=== PATIENT | male | born 1940 | race Caucasian/White ===

== ENCOUNTER 2017-03-19 08:14 | Inpatient (IN) ==
--- NOTE | 2017-03-18 21:02 | Discharge Summary ---
<Aliya Barba - Last Filed: 03/18/17 20:59> Date of Encounter: 03/18/17 - Discharge Diagnosis (1) Arthritis of knee, right Priority: Primary Status: Acute (2) Atrial fibrillation Priority: Secondary Status: Chronic Qualifiers: Atrial fibrillation type: unspecified Qualified Code(s): I48.91 - Unspecified atrial fibrillation (3) Pacemaker Priority: Secondary Status: Chronic (4) HTN (hypertension) Priority: Secondary Status: Chronic Qualifiers: Hypertension type: essential hypertension Qualified Code(s): I10 - Essential (primary) hypertension (5) HLD (hyperlipidemia) Priority: Secondary Status: Chronic Qualifiers: Hyperlipidemia type: unspecified Qualified Code(s): E78.5 - Hyperlipidemia , unspecified (6) CHF (congestive heart failure) Priority: Secondary Status: Chronic Qualifiers: Congestive heart failure type: unspecified congestive heart failure type Congestive heart failure chronicity: unspecified congestive heart failure chronicity Qualified Code(s): I50.9 - Heart failure, unspecified - Discharge Medications Home Medications: OxyCODONE Immed Rel [Roxicodone 5 MG] 5 - 10 mg PO Q6HR PRN #40 tablet 03/18/17 [Rx] Amiodarone HCl [Pacerone] 400 mg PO DAILY 03/19/17 [History] Digoxin [Lanoxin] 0.125 mg PO DAILY 03/19/17 [History] Furosemide [Lasix] 20 mg PO DAILY 03/19/17 [History] Metoprolol XL (24 HR) Succ [Toprol Xl] 25 mg PO DAILY 03/19/17 [History] Rivaroxaban [Xarelto] 20 mg PO 1800 03/19/17 [History] Sacubitril/Valsartan [Entresto 24 mg-26 mg Tablet] 1 each PO DAILY 03/19/17 [ History] Allergies/Adverse Reactions: Allergies aspirin Adverse Reaction (Verified 03/19/17 14:57) NAUSEA,VOMITING Primary care physician: Debbi Davis, - Patient Status Disposition: Transfer Inpatient Rehab Fac Condition: Good - Discharge Instructions Follow Up With: Debbi Davis MD [Primary Care Provider] - - Hospital Course Hospital course: Mr. Min is a 76 year old male - Time Spent with Patient Total time spent providing and/or coordinating discharge services: <Sherman Boston - Last Filed: 03/22/17 08:14> Date of Encounter: 03/22/17 Time of Encounter: 08:12 - Discharge Diagnosis (1) Arthritis of knee, right Priority: Primary Status: Acute (2) Atrial fibrillation Priority: Secondary Status: Chronic Qualifiers: Atrial fibrillation type: paroxysmal Qualified Code(s): I48.0 - Paroxysmal atrial fibrillation (3) Pacemaker Priority: Secondary Status: Chronic (4) HTN (hypertension) Priority: Secondary Status: Chronic Qualifiers: Hypertension type: essential hypertension Qualified Code(s): I10 - Essential (primary) hypertension (5) HLD (hyperlipidemia) Priority: Secondary Status: Chronic Qualifiers: Hyperlipidemia type: unspecified Qualified Code(s): E78.5 - Hyperlipidemia , unspecified (6) CHF (congestive heart failure) Priority: Secondary Status: Chronic Qualifiers: Congestive heart failure type: unspecified congestive heart failure type Congestive heart failure chronicity: chronic Qualified Code(s): I50.9 - Heart failure, unspecified (7) Hypoxia Priority: Primary Status: Acute (8) Urinary retention Priority: Primary Status: Acute Primary care physician: Debbi Davis, - Patient Status Functional capacity at discharge: uses cane/walker Overall status at discharge: patient is progressing back to baseline - Hospital Course Hospital course: Mr. Min is a 76 year old male The patient had an uneventful postoperative course. They received antibiotics and physical therapy and were discharged in stable condition. There will follow -up in the office in 2 weeks. Patient with postoperative hypoxia and urinary retention. Patient seen and evaluated by medical team patient discharged in significantly improved condition with no complaints of breathing issues. - Time Spent with Patient Total time spent providing and/or coordinating discharge services:
--- NOTE | 2017-03-18 21:07 | Physician Discharge Referral ---
ExtendedCare Referral Info Transfer To: [facility] Institutional Level of Care: Skilled - Diagnosis (1) Arthritis of knee, right Status: Acute (2) Atrial fibrillation Priority: Secondary Status: Chronic (3) Pacemaker Priority: Secondary Status: Chronic (4) HTN (hypertension) Priority: Secondary Status: Chronic (5) HLD (hyperlipidemia) Priority: Secondary Status: Chronic (6) CHF (congestive heart failure) Priority: Secondary Status: Chronic Prognosis: Good Aware of Diagnosis: Patient Aware of Prognosis: Patient - Transfer Medications Prescriptions: OxyCODONE Immed Rel [Roxicodone 5 MG] 5 - 10 mg PO Q6HR PRN #40 tablet PRN Reason: Pain Home Medications: OxyCODONE Immed Rel [Roxicodone 5 MG] 5 - 10 mg PO Q6HR PRN #40 tablet 03/18/17 [Rx] Allergies/Adverse Reactions: Allergies aspirin Adverse Reaction (Unverified 02/27/17 13:35) See Comments - Respiratory Orders Smoking Cessation: Smoking cessation has been advised. For more information, call the [place] Tobacco Quit Line at 0-544-HKEJ-NOW. - Ancillary Orders May use pressure relief devices daily prn, May go on JARON w/family/respon democrat w /meds at nurse discretion PRN, May consult with Dentist, Network Control Operators Supervisor, Commercial Lines Account Assistant PRN - Mobility Orders Ambulate - Rehabiliation Orders Rehab Potential: Good Rehab Orders: ROM Exercises, Evaluation for Physical Therapy, Evaluation for Occupational Therapy Other: Opsite dressing in place. Keep intact until follow up appointment, only remove if >50% saturated and replace with appropriate dressing. Do not get dressing wet - Diet Orders Regular, Cardiac CERTIFICATION: I certify that the transfer of the above named patient to an Extended Care Facility is necessary for the continuing treatment of the diagnosis listed. The above information is true and accurate reflection of patient's current condition. Confidential - Redisclosure prohibited without a patient's written consent.
[2017-03-19] MEDS ORDERED: Lidocaine -MPF 1% 2 ML VIAL ID ONE (08:33)
[2017-03-19] MEDS ORDERED: CeFAZolin Pre 2,000 MG/100 ML 2,000 MG/100 ML BAG IVPB ONE (08:33)
[2017-03-19] MEDS ORDERED: Lidocaine -MPF 2% 2 ML VIAL ONE (08:42)
[2017-03-19] MEDS ORDERED: *HR* FentaNYL (PF) 100 MCG/2 ML VIAL ONE ×2 (08:42→11:02)
[2017-03-19] MEDS ORDERED: *HR* Propofol 200 MG/20 ML VIAL IVP ONE (08:43)
[2017-03-19] MEDS ORDERED: Ringers Solution, Lactated 1,000 ML IVC SCH (08:45)
[2017-03-19] MEDS ORDERED: CeFAZolin Pre 2,000 MG/100 ML 2,000 MG/100 ML BAG ONE (08:53)
--- NOTE | 2017-03-19 09:02 | History & Physical Report ---
Date of Encounter: 03/19/17 Time of Encounter: 09:01 24 Hour HP Update - Instructions Instructions: If the History and Physical is less than 30 days old and was completed prior to A.M. admission and or procedure and has NOT been updated on calendar day of procedure please complete this update prior to performing procedure. - Update Patient reports changes in Medical Condition: No Changes in examination, assessment, or condition: No Changes in Medication: No Preop tests/diagnostics Reviewed: Yes Surgery Remains Indicated: Yes Consent for Planned Operative Procedure(s) Verified: Yes - Pre-Operative Checklist Preoperative Checklist Indicated: No Prophylactic Antibiotic Ordered: Yes Is VTE Prophylaxis Indicated?: Yes
[2017-03-19] MEDS ORDERED: Famotidine 20 MG/2 ML VIAL IVP ONE (09:03)
[2017-03-19] MEDS ORDERED: Gabapentin 300 MG CAPSULE PO ONE (09:03)
[2017-03-19] MEDS ORDERED: Famotidine 20 MG/2 ML VIAL ONE (09:43)
[2017-03-19] MEDS ORDERED: Gabapentin 300 MG CAPSULE ONE (09:43)
--- NOTE | 2017-03-19 09:55 | Anesthesia Evaluation PreOp ---
Date of Encounter: 03/19/17 Time of Encounter: 10:00 - Past History Planned Operation: Rt TKA Cardiac History: [place], CHF, HTN, Hyperlipidemia, Arrhythmia (Hx AFib), Pacemaker/ ICD (AICD last interrogated , LVEF 109-15%) Pulmonary History: Denies Any Significant HX FINANCIAL COMPLIANCE EXAMINER History: Denies Any Significant HX Other Medical History: Renal (CKD) Anesthesia History: No Prior Anesthetic Complications Alcohol Use: none Drug use: none Medications and Allergies OxyCODONE Immed Rel [Roxicodone 5 MG] 5 - 10 mg PO Q6HR PRN #40 tablet 03/18/17 [Rx] Amiodarone HCl [Pacerone] 400 mg PO DAILY 03/19/17 [History] Digoxin [Lanoxin] 0.125 mg PO DAILY 03/19/17 [History] Furosemide [Lasix] 20 mg PO DAILY 03/19/17 [History] Metoprolol XL (24 HR) Succ [Toprol XL] 25 mg PO DAILY 03/19/17 [History] Rivaroxaban [Xarelto] 20 mg PO 1800 03/19/17 [History] Sacubitril/Valsartan [Entresto 24 mg-26 mg Tablet] 1 each PO DAILY 03/19/17 [ History] Allergies aspirin Adverse Reaction (Unverified 03/19/17 09:37) NAUSEA,VOMITING - Meds/Allergy Pre-op Review Medications Reviewed: Yes Allergies Reviewed: Yes Beta Blockers on Current Med List: Yes (Metoprolol yesterday 0700) Anesthesia Results - Labs Laboratory Tests 02/27/17 02/27/17 13:35 13:35 Hgb 13.8 Hct 42.4 Plt Count 288 Sodium 139 Potassium 4.2 BUN 18 Creatinine 1.52 H - Imaging EKG: report reviewed (Electronic Atrial Pacemaker) Additional studies: LVEF 10-15% Anesthesia Exam O2 Sat Height 1.74 m Height 1.74 m Height 1.74 m Weight 91.626 kg Weight 91.626 kg Weight 91.626 kg O2 Sat by Pulse Oximetry 93 Vital Signs Temp Pulse Resp BP Pulse Ox 98.2 F 74 18 107/70 93 03/19/17 08:34 03/19/17 08:34 03/19/17 08:34 03/19/17 08:34 03/19/17 08:34 Height: 5'9 Weight: 200 lbs NPO (# of Hours): MN Pain Scale: 0 - HEENT Pupil (Motor): Pupils equal, EOMI Mallampati: III Teeth: Edentulous Denture Type: Upper: Complete Oral Opening: Less than or equal to 3 - FINANCIAL COMPLIANCE EXAMINER LOC: Oriented FINANCIAL COMPLIANCE EXAMINER Motor: Normal RUE, Normal LUE, Normal RLE, Normal LLE, Normal Face FINANCIAL COMPLIANCE EXAMINER Sensory: Normal: RUE, LUE, RLE, LLE, Face - Cardiac Rhythm: Regular Murmur: None JVD: No Carotid Bruit: No - Pulmonary Breath Sounds: bilateral Clear Respiratory Effort: Symmetrical Anesthesia Assess/Plan ASA Score: 4 (Cardiomyopathy HTN) Modified Mamadou Scale for Level of Consciousness: Cooperative, oriented, and tranquil Anesthetic Plan: General, Regional Monitoring Plan: Standard Monitors Recovery Plan: PACU (Discussed GA and RA, agrees to proceed)
[2017-03-19] MEDS ORDERED: *HR* Etomidate 40 MG/20 ML VIAL IVP ONE (10:07)
[2017-03-19] MEDS ORDERED: Lidocaine -MPF 4% 5 ML AMPUL ONE (10:13)
[2017-03-19] MEDS ORDERED: EPHEDrine 50 MG/ML VIAL ONE ×2 (10:18→11:36)
--- NOTE | 2017-03-19 10:32 | Anesthesia Procedures ---
Date of Encounter: 03/19/17 Time of Encounter: 10:25 Procedures: Anesthesia - Nerve Block Procedure Date: 03/19/17 Time: 10:25 Allergies/Adv Reactions: ASA Pre-op Diagnosis: right knee OA Surgical Procedure: right TKA Checklist: Correct Patient Identifier, Correct procedure, History checked Correct side: Right Blood Thinner: No Monitor Applied: EKG, BP, Pulse Oximetry Supplemental Oxygen via Nasal Cannula (L/min): 2 Sedation: Fentanyl (mcg): 100 Indication: Post Op Analgesia Pre-op Neuro Deficits: No Block Type: Femoral, Other (ipack) Catheter placed: No Sterile Technique: Yes Ultrasound used: Yes Anatomy identified: Yes Visual spread of Local: Yes Neuro Stimulation: Yes (femoral only) Nerve Stimulator Range: 0.2 - 0.4 mA Blood on Needle Aspiration: No Smooth Injection of Local: Yes Pain with Injection of Local: No Prep: Chlorhexadine Needle: 22 x 50 mm Stimuplex (femoral), 21 x 100 mm Stimuplex (ipack) Local: 0.25% Bupivicaine w/Clonidine 20 mcg/cc (20ml ipack), Other (0.5% bupivacaine 30mL) Volume (cc): 50 Number of Attempts: 1 Complications: None/effective block Vitals: Vital Signs/O2 Sat/Glucose, Most Recent Temp Pulse Resp BP Pulse Ox 98.2 F 69 16 111/73 99 03/19/17 10:10 03/19/17 10:27 03/19/17 10:27 03/19/17 10:27 03/19/17 10:27
--- NOTE | 2017-03-19 11:25 | Orthopedic Operative Note ---
Date of procedure: 03/19/17 Pre-op diagnosis: right knee arthritis Post-op diagnosis: same Procedure: Procedure: Right Total knee replacement Estimated blood loss: 200 cc Hardware: Metal and polyethylene replacement. Arthrex Femur: 7 Tibia: 7 PS insert: 12 Patella:40 Exam Under anesthesia: valgus alingment full motion no instability Procedural Notes:Grade 4 arthritic changes all 3 compartments Operative procedure: The patient was brought to the operating room and placed on the operating room table. After general anesthesia was administered the operative knee was examined. Findings were noted in the exam under anesthesia. The operative extremity was prepped and draped in sterile surgical fashion. The patient received IV antibiotics prior to skin incision. A standard midline incision was made centered over the patella. The incision was made through the skin and subcutaneous tissue. A medial parapatellar tendon approach was performed. Care was taken to preserve tissue along the medial aspect of the patella. And to protect the patella tendon. The deep MCL was released off the medial tibia. The infra patella fat pad was excised. Knee was brought into flexion. Grade 4 arthritic changes all 3 compartments patient noted to have. The entry hole was made for the intramedullary femoral guide. The guide was seated in 6 degrees of valgus. Anterior cut was made followed by the distal cut. The ACL the PCL the medial and the lateral menisci were excised. The tibia was subluxed forward. The entry hole was made for the intramedullary tibial guide. Guide was seated to resect 2 mm off the more abnormal side. The knee was brought into flexion the distal femur was sized 7. The femoral guide was seated , the anterior cut was made followed by the posterior condylar cut, followed by the chamfer cuts. The finishing guide was seated the box cut was made and the lug holes were drilled. The tibia was sized 7, the tibial tray was seated and prepared with the large drill followed by the fin cutter. Trial reduction revealed full extension no varus valgus instability with the appropriate 12 PS Sherice. The patella was everted and cut was made at the level of the insertion of the quadriceps and patella tendon. The patella was sized 40 the guide was seated and the lug holes are drilled. Trial reduction revealed excellent patella tracking. All trial components were removed all bony surfaces were irrigated. The tibia was cemented first followed by the femur. the 40 PS Sherice was seated and the knee was brought into full extension. The patella was cemented and held in place with the patellar holding clamp. After the cement had hardened, the knee sat for 2 minutes with a Betadine saline solution. The knee was then irrigated out with 2 L of pulse irrigation. The extensor mechanism was closed with #2 FiberWire suture and #2 PDS suture. The subcutaneous tissue was then irrigated and closed deep with #1 PDS suture superficially with 0 PDS suture and skin was closed with skin jorge luis. The patient was then placed in a sterile dressing and a postoperative brace extubated and transferred to recovery room in stable condition. Anesthesia: DAYAN Surgeon: Sherman Boston Brancher: Juli Lemons Condition: stable Disposition: PACU
[2017-03-19] MEDS ORDERED: *HR* HYDROmorphone (PF) 1 MG/ML SYRINGE IVP PRN ×2 (11:34→12:49)
[2017-03-19] MEDS ORDERED: Ondansetron 4 MG/2 ML VIAL IVP ONE (11:34)
[2017-03-19] MEDS ORDERED: *HR* Labetalol 20 MG/4 ML SYRINGE IVP PRN (11:34)
--- NOTE | 2017-03-19 12:13 | Anesthesia Evaluation Post Op ---
Date of Encounter: 03/19/17 Time of Encounter: 12:13 - Vital Signs Vital Signs: VSS - Lungs Lungs: Clear Ascult./Percussion - Airway Airway: Non-obstructed - Cardiovascular Regular Rate - Mental Status Mental Status: Alert & Oriented, Answers Appropriately - Pain Pain Scale: 1 Pain Scale used: Numeric (1 - 10) - Nausea Vomiting Nausea Vomiting: Not Present - Hydration Hydration: NPO - Discharge PostOp Status: Transfer Patient to floor
[2017-03-19 12:17] LABS: Hematocrit 32.8 % (37.5-50.1); Hemoglobin 10.8 g/dL (12.9-16.9)
[2017-03-19] MEDS ORDERED: Temazepam 15 MG CAPSULE PO PRN (12:49)
[2017-03-19] MEDS ORDERED: Ondansetron 4 MG/2 ML VIAL IVP PRN (12:49)
[2017-03-19] MEDS ORDERED: Sennosides 8.6 MG TABLET PO PRN (12:49)
[2017-03-19] MEDS ORDERED: *HR* OxyCODONE Immed Rel 5 MG TABLET PO PRN ×2 (12:49)
[2017-03-19] MEDS ORDERED: MOM Conc 10 ML UD.LIQ PO PRN (12:49)
[2017-03-19] MEDS ORDERED: Naloxone 0.4 MG/ML INJ IVP PRN (12:49)
[2017-03-19] MEDS: Ringers Solution, Lactated 1,000 ML IVC SCH (15:07)
[2017-03-19] MEDS: ceFAZolin 2,000 MG in D5% in Water 100 ML IVPB SCH (15:08)
[2017-03-19] MEDS: *HR* Rivaroxaban 10 MG TABLET PO SCH (17:07)
[2017-03-19] MEDS ORDERED: *HR* Enoxaparin 30 MG/0.3 ML SYRINGE SQ SCH (18:00)
[2017-03-20] MEDS: ceFAZolin 2,000 MG in D5% in Water 100 ML IVPB SCH (00:06)
[2017-03-20 05:48] LABS: Hematocrit 32.8 % (37.5-50.1); Hemoglobin 10.5 g/dL (12.9-16.9)
[2017-03-20 06:03] LABS: BUN/Creatinine Ratio 8 (6-26); Blood Urea Nitrogen 9 mg/dL (8-26); Calcium 8.5 mg/dL (8.6-10.8); Carbon Dioxide 27 mEq/L (19-29); Chloride 105 mEq/L (98-109); Glucose 111 mg/dL (70-99); Osmolality,Calculated 281 (280-300); Potassium 4.5 mEq/L (3.5-4.5); Sodium 136 mEq/L (136-145); eGFR For African Americans > 60 (> 60); eGFR For Non-African Americans > 60 (> 60)
[2017-03-20] MEDS: Ringers Solution, Lactated 1,000 ML IVC SCH (06:31)
--- NOTE | 2017-03-20 06:42 | Orthopedics Progress Note ---
Date of Encounter: 03/20/17 Time of Encounter: 06:42 - Assessment and Plan (1) Arthritis of knee, right Current Visit: Yes Status: Acute (2) Atrial fibrillation Current Visit: Yes Status: Chronic Qualifiers: Atrial fibrillation type: unspecified Qualified Code(s): I48.91 - Unspecified atrial fibrillation (3) Pacemaker Current Visit: Yes Status: Chronic (4) HTN (hypertension) Current Visit: Yes Status: Chronic Qualifiers: Hypertension type: essential hypertension Qualified Code(s): I10 - Essential (primary) hypertension (5) HLD (hyperlipidemia) Current Visit: Yes Status: Chronic Qualifiers: Hyperlipidemia type: unspecified Qualified Code(s): E78.5 - Hyperlipidemia , unspecified (6) CHF (congestive heart failure) Current Visit: Yes Status: Chronic Qualifiers: Congestive heart failure type: unspecified congestive heart failure type Congestive heart failure chronicity: unspecified congestive heart failure chronicity Qualified Code(s): I50.9 - Heart failure, unspecified Subjective Interval history: Patient was seen this morning doing well without complaints. Afebrile vital signs stable. Operative extremity: Neurovascularly intact Dressing clean dry and intact Calves nontender Assessment and plan: Continue with postoperative care Hematocrit 32 Objective Vital signs: Vital Signs Temp Pulse Resp BP Pulse Ox 03/20/17 04:03 98.7 F 72 15 85/48 92 03/19/17 23:34 97.9 F 82 17 95/50 99 03/19/17 21:50 98 03/19/17 19:14 97.5 F L 70 15 91/62 98 03/19/17 17:38 69 99/66 99 03/19/17 17:00 69 16 82/48 97 03/19/17 16:00 69 16 87/43 97 03/19/17 15:13 91/54 03/19/17 15:05 70 16 87/57 100 03/19/17 14:05 69 16 92/53 95 03/19/17 13:30 70 18 96/91 98 03/19/17 13:24 71 16 102/71 94 03/19/17 13:02 98 03/19/17 12:54 97.7 F 70 16 101/61 98 03/19/17 12:32 98.3 F 71 14 96/59 92 03/19/17 12:22 70 17 96/62 93 03/19/17 12:12 71 20 93/59 94 03/19/17 12:02 97.0 F L 73 14 97/59 95 03/19/17 10:40 70 18 105/66 97 03/19/17 10:27 69 16 111/73 99 03/19/17 10:17 70 16 106/68 98 03/19/17 10:10 98.2 F 74 18 107/70 03/19/17 10:05 71 16 111/69 99 03/19/17 08:34 98.2 F 74 18 107/70 93 Intake and Output 03/19/17 03/19/17 03/20/17 15:59 23:59 07:59 Intake Total 260 / 260 340 / 340 1000 / 1000 Output Total 300 / 300 675 / 675 Balance -40 / -40 340 / 340 325 / 325 Intake: IV Fluids 100 / 100 1000 / 1000 Lactated Ringers 1,000 ML 1000 / 1000 @ 75 mls/hr IVC .[id number] MORGAN Rx#:[id number] Ancef 2,000 MG In 100 / 100 Dextrose 5% 100 ML @ 200 mls/hr IVPB Q8HR MORGAN Rx#: [id number] Oral 260 / 260 240 / 240 Output: Estimated Blood Loss 300 / 300 Straight Cath 675 / 675 Other: Meal Lunch Dinner Percent of Meal Consumed 70% Weight 91.626 kg - Labs CBC & BMP: 03/20/17 04:55 03/20/17 04:55 Labs: Abnormal lab results Hgb 10.5 g/dL (12.9-16.9) L 03/20/17 04:55 Hct 32.8 % (37.5-50.1) L 03/20/17 04:55 Glucose 111 mg/dL (70-99) H 03/20/17 04:55 Calcium 8.5 mg/dL (8.6-10.8) L 03/20/17 04:55 - VTE Documentation of Mechanical Device: Venous foot pump, device Consult Discharge Plan - Plan Referrals: Debbi Davis MD [Primary Care Provider] -
[2017-03-20] MEDS: *HR* Digoxin 0.125 MG TABLET PO SCH (08:21)
[2017-03-20] MEDS: Furosemide 20 MG TABLET PO SCH (08:21)
[2017-03-20] MEDS: *HR* Amiodarone 200 MG TABLET PO SCH (08:21)
[2017-03-20] MEDS: SACUBITRIL/VALSARTAN 24/26 MG TABLET PO SCH (08:21)
[2017-03-20] MEDS: Metoprolol XL (24 HR) Succ 25 MG TAB.ER.24H PO SCH (08:22)
[2017-03-20] MEDS ORDERED: 0.9 % Sodium Chloride 250 ML IVC SCH (08:30)
[2017-03-20] MEDS: *HR* Rivaroxaban 10 MG TABLET PO SCH (17:14)
[2017-03-20] MEDS ORDERED: Acetaminophen 325 MG TABLET PO PRN (21:37)
[2017-03-21 04:55] LABS: Hematocrit 31.5 % (37.5-50.1); Hemoglobin 10.4 g/dL (12.9-16.9)
[2017-03-21 05:13] LABS: BUN/Creatinine Ratio 8 (6-26); Blood Urea Nitrogen 9 mg/dL (8-26); Calcium 8.4 mg/dL (8.6-10.8); Carbon Dioxide 26 mEq/L (19-29); Chloride 104 mEq/L (98-109); Glucose 99 mg/dL (70-99); Osmolality,Calculated 279 (280-300); Potassium 3.8 mEq/L (3.5-4.5); Sodium 135 mEq/L (136-145); eGFR For African Americans > 60 (> 60); eGFR For Non-African Americans > 60 (> 60)
--- NOTE | 2017-03-21 08:27 | Orthopedics Progress Note ---
Date of Encounter: 03/21/17 Time of Encounter: 08:26 - Assessment and Plan (1) Arthritis of knee, right Current Visit: Yes Status: Acute (2) Atrial fibrillation Current Visit: Yes Status: Chronic Qualifiers: Atrial fibrillation type: unspecified Qualified Code(s): I48.91 - Unspecified atrial fibrillation (3) Pacemaker Current Visit: Yes Status: Chronic (4) HTN (hypertension) Current Visit: Yes Status: Chronic Qualifiers: Hypertension type: essential hypertension Qualified Code(s): I10 - Essential (primary) hypertension (5) HLD (hyperlipidemia) Current Visit: Yes Status: Chronic Qualifiers: Hyperlipidemia type: unspecified Qualified Code(s): E78.5 - Hyperlipidemia , unspecified (6) CHF (congestive heart failure) Current Visit: Yes Status: Chronic Qualifiers: Congestive heart failure type: unspecified congestive heart failure type Congestive heart failure chronicity: unspecified congestive heart failure chronicity Qualified Code(s): I50.9 - Heart failure, unspecified Subjective Interval history: Patient was seen this morning doing well still some issues with breathing, to be evaluated by medicine Afebrile vital signs stable. Operative extremity: Neurovascularly intact Dressing clean dry and intact Calves nontender Assessment and plan: Continue with postoperative care Hematocrit 31 Objective Vital signs: Vital Signs Temp Pulse Resp BP Pulse Ox 03/21/17 07:40 98.8 F 70 16 104/61 94 03/21/17 04:23 99.0 F 70 14 99/60 97 03/20/17 23:32 98.8 F 70 21 90/48 96 03/20/17 20:15 101.5 F H 71 17 100/61 97 03/20/17 15:11 99.3 F 69 16 96/57 98 03/20/17 14:19 99.4 F 69 16 99/59 98 03/20/17 11:28 99.0 F 69 18 100/64 98 03/20/17 11:13 98.8 F 63 20 104/67 100 03/20/17 10:57 98.5 F 70 15 97/63 94 03/20/17 08:37 79/48 Intake and Output 03/20/17 03/21/17 03/21/17 23:59 07:59 15:59 Intake Total 300 / 300 Output Total 450 / 450 Balance 300 / 300 -450 / -450 Intake: Oral 300 / 300 Output: Straight Cath 450 / 450 Other: Meal Dinner Percent of Meal Consumed 5% - Labs CBC & BMP: 03/21/17 04:18 03/21/17 04:18 Labs: Abnormal lab results Hgb 10.4 g/dL (12.9-16.9) L 03/21/17 04:18 Hct 31.5 % (37.5-50.1) L 03/21/17 04:18 Sodium 135 mEq/L (136-145) L 03/21/17 04:18 Calculated Osmolality 279 (280-300) L 03/21/17 04:18 Calcium 8.4 mg/dL (8.6-10.8) L 03/21/17 04:18 - VTE Documentation of Mechanical Device: Venous foot pump, device Consult Discharge Plan - Plan Referrals: Debbi Davis MD [Primary Care Provider] -
--- NOTE | 2017-03-21 09:08 | Internal Medicine Consult Note ---
Date of Encounter: 03/21/17 Time of Encounter: 08:15 - Assessment and Plan (1) Fever Current Visit: Yes Status: Acute Assessment and plan: One episode of fever with them pressure of 101.5 F. Chest x-ray shows increased density at left base which is most likely atelectasis. Patient does not appear to have any other signs of pneumonia at this time. Will check CBC. As patient's fever subsided without any antipyretic agents, most likely related to atelectasis. Continue incentive spirometry. We will also check urine for any urinary tract infection. No indication for antibiotics at this time. However if patient develops fever again, we will draw blood cultures and start empiric antibiotics. Moderate risk for complications. Qualifiers: Fever type: post-procedural Qualified Code(s): R50.82 - Postprocedural fever (2) Hypoxia Current Visit: Yes Status: Acute Assessment and plan: Patient has been requiring O2 supplementation. Likely from atelectasis. Continue incentive spirometry and wean FiO2 as tolerated to keep sats greater than 90%. (3) Urinary retention Current Visit: Yes Status: Acute Assessment and plan: Most likely from BPH although patient does not describe a history of BPH. We will check urine analysis. Start trial dose of Flomax. If patient continues to exhibit urinary retention, he may be discharged on Lockett catheter with outpatient urology follow-up. (4) Atrial fibrillation Current Visit: Yes Status: Chronic Assessment and plan: On amiodarone and digoxin. Heart rate is well controlled at this time. Anticoagulation with Xarelto Qualifiers: Atrial fibrillation type: paroxysmal Qualified Code(s): I48.0 - Paroxysmal atrial fibrillation (5) CHF (congestive heart failure) Current Visit: Yes Status: Chronic Assessment and plan: Nonspecific chronic congestive heart failure. Not exhibiting any signs of acute heart failure. Continue oral dose of Lasix. Qualifiers: Congestive heart failure type: unspecified congestive heart failure type Congestive heart failure chronicity: chronic Qualified Code(s): I50.9 - Heart failure, unspecified (6) HTN (hypertension) Current Visit: Yes Status: Chronic Assessment and plan: blood pressure is well controlled. Continue home medications. Qualifiers: Hypertension type: essential hypertension Qualified Code(s): I10 - Essential (primary) hypertension Internal Medicine - CN: HPI - Data of Consult Consult date: 03/21/17 Requesting Physician: Sherman Boston MD - Consult Narrative Reason for consult: Fever History of present illness: Mr. Min is a 76 year old male patient with a history of atrial fibrillation , permanent pacemaker, hypertension, hyperlipidemia, chronic congestive heart failure is currently admitted to the hospital by orthopedics following right total knee replacement surgery. Patient was recovering well but he developed fever last night with temperature of 101.5F. he was provided with incentive spirometry. Tylenol was ordered but patient did not receive it and his temperature has improved spontaneously. This morning his temperature was 98.8F. patient denies any cough. He does have some shortness of breath which seems to be improving with incentive spirometry. He also reports difficulty urinating. He denies any past history of BPH. Denies any dysuria. No hematuria either. No chest pain. No palpitations. No abdominal pain. Past Med Surg Social Fam HX - Past Medical History Attestation: Yes The following information was validated with the patient. Source: patient Medical history: atrial fibrillation, CHF (nonspecific), hyperlipidemia, hypertension Psychiatric history: no psych history - Past Surgical History Surgical History: other - Social History Smoking Status: Never smoker Smokeless Tobacco Status: No Alcohol use: none Drug use: none All systems: reviewed and no additional remarkable complaints except as stated - Constitutional Constitutional: fever(s), no excessive sweating, no fatigue, no malaise, no weakness - EENT Eyes: no change in vision, no diplopia, no loss of peripheral vision, no loss of vision Ears: no ear discharge, no ear pain Nose, mouth and throat: no bleeding gums, no change in voice, no nasal congestion, no nasal discharge, no sinus pain, no sinus pressure - Cardiovascular Cardiovascular ROS IM: no chest pain, no dyspnea, no dyspnea on exertion, no palpitations - Respiratory Respiratory: dyspnea, no cough, no dyspnea on exertion, no wheezing, no excessive phlegm production, no change in phlegm color - Gastrointestinal Gastrointestinal: no abdominal pain, no constipation, no melena, no nausea, no vomiting - Neurological Neurological ROS: no confusion, no convulsions, no disequilibrium, no dizziness , no focal weakness, no loss of vision, no memory loss, no numbness - Endocrine Endocrine IM: no fatigue, no flushing, no heat intolerance, no polydipsia Internal Medicine - CN: Meds OxyCODONE Immed Rel [Roxicodone 5 MG] 5 - 10 mg PO Q6HR PRN #40 tablet 03/18/17 [Rx] Amiodarone HCl [Pacerone] 400 mg PO DAILY 03/19/17 [History] Digoxin [Lanoxin] 0.125 mg PO DAILY 03/19/17 [History] Furosemide [Lasix] 20 mg PO DAILY 03/19/17 [History] Metoprolol XL (24 HR) Succ [Toprol Xl] 25 mg PO DAILY 03/19/17 [History] Rivaroxaban [Xarelto] 20 mg PO 1800 03/19/17 [History] Sacubitril/Valsartan [Entresto 24 mg-26 mg Tablet] 1 each PO DAILY 03/19/17 [ History] Allergies aspirin Adverse Reaction (Verified 03/19/17 14:57) NAUSEA,VOMITING Internal Medicine - CN: Exam - Constitutional Vitals: Temp Pulse Resp BP Pulse Ox 98.8 F 70 16 104/61 94 03/21/17 07:40 03/21/17 07:40 03/21/17 07:40 03/21/17 07:40 03/21/17 07:40 General appearance IM: Present: cooperative, A&O X 3, no acute distress, answers questions appropriately - Head Head exam: Present: atraumatic - Eye Eye exam: Present: EOMI, PERRL - ENT ENT exam: Present: mucous membranes moist - Neck Neck exam general surgery: Present: supple, trachea midline - Respiratory Respiratory exam: Present: CTAB. Absent: accessory muscle use, respiratory distress, rhonchi, wheezes - Cardiovascular Cardiovascular exam IM: Present: RRR, +S1, +S2 - GI/Abdominal GI/Abdominal exam IM: Present: normal bowel sounds, soft, no peritoneal signs. Absent: tenderness - Extremities Exam Extremities exam IM: Present: full ROM, normal capillary refill, radial pulses palpable and symetrical. Absent: pedal edema Additional comments: Right knee surgical incision site healing well - Back Exam Back exam: Present: full ROM - Neurological Exam Neurological exam: Present: alert, oriented X3, strengths equal and symetr throughout. Absent: no focal deficits - Psychiatric Psychiatric exam: Present: normal affect, normal mood - Skin Skin exam IM: Present: dry, intact Internal Medicine - CN: Reslt - Labs CBC & Chem 7: 03/21/17 04:18 03/21/17 04:18 Labs: Short CBC 03/21/17 Range/Units 04:18 Hgb 10.4 L (12.9-16.9) g/dL Hct 31.5 L (37.5-50.1) % BMP 03/21/17 04:18 Sodium 135 L Potassium 3.8 Chloride 104 Carbon Dioxide 26 BUN 9 Creatinine 1.13 Glucose 99 Calcium 8.4 L - Impressions Impressions Chest X-Ray 03/20/17 21:36 IMPRESSION: Focal increased density left lung base, atelectasis versus pneumonia. D/ / Kofi Rojas / Kofi Rojas Interpreting Provider: Kofi Rojas Consult Discharge Plan - Plan Referrals: Debbi Davis MD [Primary Care Provider] -
[2017-03-21 09:30] LABS: Basophils # 0.1 K/mcL (0.0-0.2); Basophils % 0.6 %; Eosinophils % 0.3 %; Hematocrit 32.5 % (37.5-50.1); Hemoglobin 10.8 g/dL (12.9-16.9); Immature Granulocytes % 0.7 % (0-4); Immature Platelets 5.1 % (1.1-6.1); Lymphocytes % 9.3 %; Mean Corpuscular HGB Conc 33.2 g/dL (31.6-35.5); Mean Corpuscular Hemoglobin 30.1 pg (28.0-33.3); Mean Corpuscular Volume 90.5 fL (83.0-100.0); Mean Platelet Volume 10.6 fL (9.4-12.4); Monocytes # 0.8 K/mcL (0.0-1.3); Monocytes % 7.3 %; Neutrophils # 8.8 K/mcL (1.6-8.9); Platelet Count 285 K/mcL (140-400); Red Blood Count 3.59 M/mcL (4.19-5.50); Red Cell Distribution Width 15.4 % (11.5-14.5); Segmented Neutrophils % 81.8 %
[2017-03-21] MEDS: *HR* Amiodarone 200 MG TABLET PO SCH (09:31)
[2017-03-21] MEDS: Furosemide 20 MG TABLET PO SCH (09:31)
[2017-03-21] MEDS: Metoprolol XL (24 HR) Succ 25 MG TAB.ER.24H PO SCH (09:32)
[2017-03-21] MEDS: SACUBITRIL/VALSARTAN 24/26 MG TABLET PO SCH (09:32)
[2017-03-21] MEDS: *HR* Digoxin 0.125 MG TABLET PO SCH (09:32)
[2017-03-21 13:17] LABS: Bilirubin,Urine Negative (Negative); Blood,Urine Moderate (Negative); Color,Urine Dark Yellow (Yellow); Glucose,Urine (UA) Normal (Normal); Ketones,Urine 15 mg/dL (Negative); Leukocyte Esterase,Urine Small (Negative); Nitrite,Urine Negative (Negative); Protein,Urine Negative (Neg-Trace); Specific Gravity,Urine 1.018 (1.010-1.025); Urobilinogen,Urine Normal (Normal)
[2017-03-21 13:18] LABS: Bacteria,Urine None Seen per hpf (None-Few); Hyaline Casts,Urine None Seen per lpf (None-Few); Squamous Epithelial Cell,Urine Many per lpf (None-Few); WBC,Urine 15-30 per hpf (0-3)
[2017-03-21 13:19] LABS: Clarity,Urine Slightly Hazy (Clear)
[2017-03-21] MEDS: *HR* Rivaroxaban 10 MG TABLET PO SCH (16:30)
[2017-03-22] MEDS ORDERED: 0.9 % Sodium Chloride 1,000 ML IVC ONE (04:25)
[2017-03-22 05:20] LABS: Basophils % 0.2 %; Eosinophils % 0.1 %; Hematocrit 26.9 % (37.5-50.1); Immature Granulocytes % 0.8 % (0-4); Lymphocytes # 1.2 K/mcL (0.6-4.6); Lymphocytes % 12.1 %; Mean Corpuscular HGB Conc 33.8 g/dL (31.6-35.5); Mean Corpuscular Volume 88.8 fL (83.0-100.0); Mean Platelet Volume 10.7 fL (9.4-12.4); Neutrophils # 7.3 K/mcL (1.6-8.9); Platelet Count 218 K/mcL (140-400); Red Blood Count 3.03 M/mcL (4.19-5.50); Red Cell Distribution Width 15.3 % (11.5-14.5); Segmented Neutrophils % 76.8 %
[2017-03-22 05:30] LABS: Hemoglobin 9.1 g/dL (12.9-16.9)
[2017-03-22 05:42] LABS: Alanine Aminotransferase 8 Units/L (0-55); Albumin 2.3 g/dL (3.5-5.0); Albumin/Globulin Ratio 0.8 (1.1-2.2); Alkaline Phosphatase 70 Units/L (38-126); Aspartate Amino Transferase 16 Units/L (5-34); BUN/Creatinine Ratio 11 (6-26); Bilirubin,Total 1.1 mg/dL (0.2-1.2); Blood Urea Nitrogen 12 mg/dL (8-26); Calcium 8.4 mg/dL (8.6-10.8); Carbon Dioxide 25 mEq/L (19-29); Chloride 103 mEq/L (98-109); Globulin 2.9 g/dL (2.4-3.5); Glucose 103 mg/dL (70-99); Osmolality,Calculated 276 (280-300); Potassium 3.8 mEq/L (3.5-4.5); Sodium 133 mEq/L (136-145); Total Protein 5.2 g/dL (6.0-8.3); eGFR For African Americans > 60 (> 60); eGFR For Non-African Americans > 60 (> 60)
--- NOTE | 2017-03-22 08:17 | Orthopedics Progress Note ---
Date of Encounter: 03/22/17 Time of Encounter: 08:16 - Assessment and Plan (1) Arthritis of knee, right Current Visit: Yes Status: Acute (2) Atrial fibrillation Current Visit: Yes Status: Chronic Qualifiers: Atrial fibrillation type: paroxysmal Qualified Code(s): I48.0 - Paroxysmal atrial fibrillation (3) Pacemaker Current Visit: Yes Status: Chronic (4) HTN (hypertension) Current Visit: Yes Status: Chronic Qualifiers: Hypertension type: essential hypertension Qualified Code(s): I10 - Essential (primary) hypertension (5) HLD (hyperlipidemia) Current Visit: Yes Status: Chronic Qualifiers: Hyperlipidemia type: unspecified Qualified Code(s): E78.5 - Hyperlipidemia , unspecified (6) CHF (congestive heart failure) Current Visit: Yes Status: Chronic Qualifiers: Congestive heart failure type: unspecified congestive heart failure type Congestive heart failure chronicity: chronic Qualified Code(s): I50.9 - Heart failure, unspecified (7) Hypoxia Current Visit: Yes Status: Acute (8) Urinary retention Current Visit: Yes Status: Acute Subjective Interval history: Patient was seen this morning doing well still some issues with breathing, to be evaluated by medicine Afebrile vital signs stable. Operative extremity: Neurovascularly intact Dressing clean dry and intact Calves nontender Assessment and plan: Continue with postoperative care Hematocrit 26.9 transfuse 1 unit then dc today Objective Vital signs: Vital Signs Temp Pulse Resp BP Pulse Ox 03/22/17 07:44 96 03/22/17 07:07 98.3 F 70 16 103/60 96 03/21/17 20:15 98.4 F 67 18 83/51 96 03/21/17 15:55 99.8 F H 72 16 90/55 96 03/21/17 10:49 99.4 F 75 16 112/68 94 Intake and Output 03/21/17 03/22/17 03/22/17 23:59 07:59 15:59 Intake Total 260 / 260 0 / 0 Output Total 200 / 200 Balance 60 / 60 0 / 0 Intake: Oral 260 / 260 0 / 0 Output: Urine 200 / 200 - Labs CBC & BMP: 03/22/17 04:58 03/22/17 04:58 Labs: Abnormal lab results RBC 3.03 M/mcL (4.19-5.50) L 03/22/17 04:58 Hgb 9.1 g/dL (12.9-16.9) L D 03/22/17 04:58 Hct 26.9 % (37.5-50.1) L 03/22/17 04:58 RDW 15.3 % (11.5-14.5) H 03/22/17 04:58 Sodium 133 mEq/L (136-145) L 03/22/17 04:58 Glucose 103 mg/dL (70-99) H 03/22/17 04:58 Calculated Osmolality 276 (280-300) L 03/22/17 04:58 Calcium 8.4 mg/dL (8.6-10.8) L 03/22/17 04:58 Serum Total Protein 5.2 g/dL (6.0-8.3) L 03/22/17 04:58 Albumin 2.3 g/dL (3.5-5.0) L 03/22/17 04:58 Albumin/Globulin Ratio 0.8 (1.1-2.2) L 03/22/17 04:58 Urine Ketones 15 mg/dL (Negative) H 03/21/17 13:00 Urine Blood Moderate (Negative) H 03/21/17 13:00 Ur Leukocyte Esterase Small (Negative) H 03/21/17 13:00 Urine Microscopic RBC 5-15 per hpf (0-3) H 03/21/17 13:00 Urine Microscopic WBC 15-30 per hpf (0-3) H 03/21/17 13:00 Ur Squamous Epith Cells Many per lpf (None-Few) H 03/21/17 13:00 Ur Culture Indicated? YES (NO) A 03/21/17 13:00 - VTE Documentation of Mechanical Device: Venous foot pump, device Consult Discharge Plan - Plan Referrals: Debbi Davis MD [Primary Care Provider] -
[2017-03-22] MEDS ORDERED: Furosemide 20 MG/2 ML VIAL IVP ONE ×2 (08:25→16:06)
[2017-03-22] MEDS ORDERED: 0.9 % Sodium Chloride 250 ML IVC SCH (08:30)
[2017-03-22] MEDS: SACUBITRIL/VALSARTAN 24/26 MG TABLET PO SCH (10:14)
[2017-03-22] MEDS: Metoprolol XL (24 HR) Succ 25 MG TAB.ER.24H PO SCH (10:15)
[2017-03-22] MEDS: *HR* Digoxin 0.125 MG TABLET PO SCH (10:15)
[2017-03-22] MEDS: *HR* Amiodarone 200 MG TABLET PO SCH (10:15)
[2017-03-22] MEDS: *HR* Rivaroxaban 10 MG TABLET PO SCH (16:12)
--- NOTE | 2017-03-22 16:39 | Internal Med Progress Note ---
Date of Encounter: 03/22/17 Time of Encounter: 16:32 - Assessment and plan (1) Pneumonia Current Visit: Yes Status: Acute Qualifiers: Pneumonia type: due to unspecified organism Laterality: left Qualified Code(s): J18.9 - Pneumonia, unspecified organism (2) Atrial fibrillation Current Visit: No Status: Chronic Qualifiers: Atrial fibrillation type: paroxysmal Qualified Code(s): I48.0 - Paroxysmal atrial fibrillation (3) HTN (hypertension) Current Visit: Yes Status: Chronic Qualifiers: Hypertension type: essential hypertension Qualified Code(s): I10 - Essential (primary) hypertension (4) Fever Current Visit: Yes Status: Acute Qualifiers: Fever type: post-procedural Qualified Code(s): R50.82 - Postprocedural fever (5) Urinary retention Current Visit: Yes Status: Acute - Subjective Interval history: Mr. Matthew Min is a 76-year-old gentleman who is under care of orthopedic surgery and underwent right knee replacement. In postop. He had transient fever we have which would normally be considered secondary to surgery however a chest x-ray was done which showed left-sided infiltrates versus nodularity. A UA was also obtained which showed some leukocytes though nitrites are negative. This situation creates a dilemma as previously it was determined that antibiotics are not necessary however it leaves us with the question what to do about lung nodularity versus infiltrates. Also abnormal UA reflects the transient infection due to instrumentation or catheterization while might have been during surgery. In my opinion it would be a safer approach to place patient on broad-spectrum antibiotic and repeat chest x-ray in 4 weeks 4-6 weeks to see if infiltrates have resolved and if not then he deserves a CT chest may be an outpatient. At the same time UA was considered eligible to be sent for culture therefore we should wait for the culture reports and in case if they pipe turner to be positive this will explain the transient spike in fever. I did notice in the chart that there was mention of urinary retention but I could not find any numbers of bladder scan which could support at. Therefore I will restart patient on IV Rocephin a gram daily and if he needs to be discharged he can discharged after second dose tomorrow on Ceftin 500 twice a day for 10 days. I noted he has some swelling of right knee and cold pack was they are. Orthopedic will further evaluate the knee. - Constitutional Vitals: Temp Pulse Resp BP Pulse Ox 98.7 F 71 16 93/51 97 03/22/17 16:10 03/22/17 16:10 03/22/17 16:10 03/22/17 16:10 03/22/17 16:10 General appearance: Present: cooperative, A&O X 3, no acute distress, answers questions appropriately - Head Head exam: Present: atraumatic, normocephalic - Eye Eye exam: Present: PERRL, conjuntiva pink, sclera anicteric Pupils: Present: PERRL - Neck Neck exam general surgery: Present: supple, trachea midline. Absent: lymphadenopathy - Respiratory Respiratory exam: Present: CTAB. Absent: accessory muscle use, rales, rhonchi, wheezes - Cardiovascular Cardiovascular exam: Present: RRR, +S1, +S2. Absent: diastolic murmur, gallop, rubs, systolic murmur - GI/Abdominal GI/Abdominal exam: Present: normal bowel sounds, soft, no peritoneal signs. Absent: distended, tenderness - Extremities Exam Extremities exam: Present: warm, radial pulses palpable and symetrical. Absent : calf tenderness, cyanotic, pedal edema Additional comments: Right knee swelling but no redness except mild erythema which would be expected around recently operated knee incision - Neurological Exam Neurological exam: Present: CN II-XII intact, oriented X3, no focal deficits. Absent: pronater drift, facial droop, speech deficit - Skin Skin exam: Present: dry, intact Internal Medicine: Result - Labs CBC & Chem 7: 03/22/17 04:58 03/22/17 04:58 Labs: Short CBC 03/22/17 Range/Units 04:58 WBC 9.5 (4.3-11.1) K/mcL Hgb 9.1 L D (12.9-16.9) g/dL Hct 26.9 L (37.5-50.1) % Plt Count 218 (140-400) K/mcL Neutrophils # 7.3 (1.6-8.9) K/mcL BMP 03/22/17 04:58 Sodium 133 L Potassium 3.8 Chloride 103 Carbon Dioxide 25 BUN 12 Creatinine 1.10 Glucose 103 H Calcium 8.4 L Liver Function 03/22/17 Range/Units 04:58 Total Bilirubin 1.1 (0.2-1.2) mg/dL AST 16 (5-34) Units/L ALT 8 (0-55) Units/L Alkaline Phosphatase 70 (38-126) Units/L Albumin 2.3 L (3.5-5.0) g/dL - VTE Documentation of Mechanical Device: Venous foot pump, device Consult Discharge Plan - Plan Referrals: Debbi Davis MD [Primary Care Provider] -
--- NOTE | 2017-03-23 06:42 | Orthopedics Progress Note ---
Date of Encounter: 03/23/17 Time of Encounter: 06:41 - Assessment and Plan (1) Arthritis of knee, right Current Visit: Yes Status: Acute (2) Atrial fibrillation Current Visit: No Status: Chronic Qualifiers: Atrial fibrillation type: paroxysmal Qualified Code(s): I48.0 - Paroxysmal atrial fibrillation (3) Pacemaker Current Visit: Yes Status: Chronic (4) HTN (hypertension) Current Visit: Yes Status: Chronic Qualifiers: Hypertension type: essential hypertension Qualified Code(s): I10 - Essential (primary) hypertension (5) HLD (hyperlipidemia) Current Visit: Yes Status: Chronic Qualifiers: Hyperlipidemia type: unspecified Qualified Code(s): E78.5 - Hyperlipidemia , unspecified (6) CHF (congestive heart failure) Current Visit: Yes Status: Chronic Qualifiers: Congestive heart failure type: unspecified congestive heart failure type Congestive heart failure chronicity: chronic Qualified Code(s): I50.9 - Heart failure, unspecified (7) Hypoxia Current Visit: Yes Status: Acute (8) Urinary retention Current Visit: Yes Status: Acute Subjective Interval history: Patient was seen this morning doing well this morning, no complaints. Afebrile vital signs stable. Operative extremity: Neurovascularly intact Dressing clean dry and intact Calves nontender Assessment and plan: Continue with postoperative care Patient seen by medicine concern for pneumonia. Patient will be placed on oral antibiotics and discharged as per the recommendation by medical team. Patient will be discharged today to rehabilitation. Objective Vital signs: Vital Signs Temp Pulse Resp BP Pulse Ox 03/23/17 06:23 92 03/23/17 04:13 98.9 F 70 16 88/45 92 03/23/17 00:49 99.3 F 74 17 90/53 92 03/22/17 20:44 99.9 F H 77 17 97/55 95 03/22/17 16:10 98.7 F 71 16 93/51 97 03/22/17 15:07 98.3 F 71 20 99/56 97 03/22/17 13:01 98.4 F 72 14 94/46 96 03/22/17 12:46 98.0 F 70 16 107/64 100 03/22/17 10:45 98.0 F 70 16 107/64 100 03/22/17 07:44 96 03/22/17 07:07 98.3 F 70 16 103/60 96 Intake and Output 03/22/17 03/22/17 03/23/17 15:59 23:59 07:59 Intake Total 600 / 600 790 / 790 Output Total 600 / 600 700 / 700 Balance 600 / 600 190 / 190 -700 / -700 Intake: IV Fluids 0 / 0 0.9 % Sodium Chloride 250 0 / 0 ML @ 25 mls/hr IVC .Q10H [facility] Rx#:[id number] Oral 600 / 600 440 / 440 Blood Product 0 / 0 350 / 350 Rbcs Leuko Poor As-1 0 / 0 350 / 350 Unit [id number] Output: Urine 600 / 600 700 / 700 Other: Meal Lunch Dinner Percent of Meal Consumed 100% 90% Weight 89.8 kg Patient Weight 03/23/17 23:59 Weight 89.8 kg - Labs CBC & BMP: 03/22/17 04:58 03/22/17 04:58 Labs: Abnormal lab results RBC 3.03 M/mcL (4.19-5.50) L 03/22/17 04:58 Hgb 9.1 g/dL (12.9-16.9) L D 03/22/17 04:58 Hct 26.9 % (37.5-50.1) L 03/22/17 04:58 RDW 15.3 % (11.5-14.5) H 03/22/17 04:58 Sodium 133 mEq/L (136-145) L 03/22/17 04:58 Glucose 103 mg/dL (70-99) H 03/22/17 04:58 Calculated Osmolality 276 (280-300) L 03/22/17 04:58 Calcium 8.4 mg/dL (8.6-10.8) L 03/22/17 04:58 Serum Total Protein 5.2 g/dL (6.0-8.3) L 03/22/17 04:58 Albumin 2.3 g/dL (3.5-5.0) L 03/22/17 04:58 Albumin/Globulin Ratio 0.8 (1.1-2.2) L 03/22/17 04:58 Urine Ketones 15 mg/dL (Negative) H 03/21/17 13:00 Urine Blood Moderate (Negative) H 03/21/17 13:00 Ur Leukocyte Esterase Small (Negative) H 03/21/17 13:00 Urine Microscopic RBC 5-15 per hpf (0-3) H 03/21/17 13:00 Urine Microscopic WBC 15-30 per hpf (0-3) H 03/21/17 13:00 Ur Squamous Epith Cells Many per lpf (None-Few) H 03/21/17 13:00 Ur Culture Indicated? YES (NO) A 03/21/17 13:00 - VTE Documentation of Mechanical Device: Venous foot pump, device Consult Discharge Plan - Plan Referrals: Debbi Davis MD [Primary Care Provider] -
[2017-03-23] MEDS: *HR* Digoxin 0.125 MG TABLET PO SCH (09:05)
[2017-03-23] MEDS: Metoprolol XL (24 HR) Succ 25 MG TAB.ER.24H PO SCH (09:06)
[2017-03-23] MEDS: *HR* Amiodarone 200 MG TABLET PO SCH (09:06)
[2017-03-23] MEDS: SACUBITRIL/VALSARTAN 24/26 MG TABLET PO SCH (09:07)
[2017-03-23 11:28] VITALS: BP 98/54
--- NOTE | 2017-03-23 13:14 | Internal Med Progress Note ---
Date of Encounter: 03/23/17 Time of Encounter: 13:13 - Assessment and plan (1) Pneumonia Current Visit: Yes Status: Acute Qualifiers: Pneumonia type: due to unspecified organism Laterality: left Qualified Code(s): J18.9 - Pneumonia, unspecified organism (2) Atrial fibrillation Current Visit: No Status: Chronic Qualifiers: Atrial fibrillation type: paroxysmal Qualified Code(s): I48.0 - Paroxysmal atrial fibrillation (3) HTN (hypertension) Current Visit: Yes Status: Chronic Qualifiers: Hypertension type: essential hypertension Qualified Code(s): I10 - Essential (primary) hypertension (4) Fever Current Visit: Yes Status: Acute Qualifiers: Fever type: post-procedural Qualified Code(s): R50.82 - Postprocedural fever (5) Urinary retention Current Visit: Yes Status: Acute - Subjective Interval history: Mr. Matthew Min is a 76-year-old gentleman who is under care of orthopedic surgery and underwent right knee replacement. In postop. He had transient fever we have which would normally be considered secondary to surgery however a chest x-ray was done which showed left-sided infiltrates versus nodularity. A UA was also obtained which showed some leukocytes though nitrites are negative. This situation creates a dilemma as previously it was determined that antibiotics are not necessary however it leaves us with the question what to do about lung nodularity versus infiltrates. Also abnormal UA reflects the transient infection due to instrumentation or catheterization while might have been during surgery. In my opinion it would be a safer approach to place patient on broad-spectrum antibiotic and repeat chest x-ray in 4 weeks 4-6 weeks to see if infiltrates have resolved and if not then he deserves a CT chest may be an outpatient. At the same time UA was considered eligible to be sent for culture therefore we should wait for the culture reports and in case if they pillowcase turner to be positive this will explain the transient spike in fever. I did notice in the chart that there was mention of urinary retention but I could not find any numbers of bladder scan which could support at. Therefore I will restart patient on IV Rocephin a gram daily and if he needs to be discharged he can discharged after second dose tomorrow on Ceftin 500 twice a day for 10 days. I noted he has some swelling of right knee and cold pack was they are. Orthopedic will further evaluate the knee. Internal medicine will sign off. Patient was seen today and seems to be very comfortable denies any symptoms of chest pain cough or any other symptoms. Exam is unremarkable. - Constitutional Vitals: Temp Pulse Resp BP Pulse Ox 98.5 F 83 16 98/54 95 03/23/17 10:19 03/23/17 10:19 03/23/17 10:19 03/23/17 10:19 03/23/17 10:19 General appearance: Present: cooperative, A&O X 3, no acute distress, answers questions appropriately - Head Head exam: Present: atraumatic, normocephalic - Eye Eye exam: Present: PERRL, conjuntiva pink, sclera anicteric Pupils: Present: PERRL - Neck Neck exam general surgery: Present: supple, trachea midline. Absent: lymphadenopathy - Respiratory Respiratory exam: Present: CTAB. Absent: accessory muscle use, rales, rhonchi, wheezes - Cardiovascular Cardiovascular exam: Present: RRR, +S1, +S2. Absent: diastolic murmur, gallop, rubs, systolic murmur - GI/Abdominal GI/Abdominal exam: Present: normal bowel sounds, soft, no peritoneal signs. Absent: distended, tenderness - Extremities Exam Extremities exam: Present: warm, radial pulses palpable and symetrical. Absent : calf tenderness, cyanotic, pedal edema - Neurological Exam Neurological exam: Present: CN II-XII intact, oriented X3, no focal deficits. Absent: pronater drift, facial droop, speech deficit - Skin Skin exam: Present: dry, intact Internal Medicine: Result - Labs CBC & Chem 7: 03/22/17 04:58 03/22/17 04:58 - VTE Documentation of Mechanical Device: Venous foot pump, device Consult Discharge Plan - Plan Additional Instructions: Discharge Instructions: Total Knee Replacement Please call [facility] ([phone]), your Primary Care Physician, or report to the Emergency Room if you have any of the following symptoms: Nausea, vomiting, fever greater that 101.5, swelling, chest pain, shortness of breath, increased pain/redness/drainage/odor for your incision site, numbness/ tingling, or any other concerning symptoms. ACTIVITY:Weight-bearing as tolerated. You may progress off support (crutches or walker) as tolerated. MEDICATIONS: Upon discharge resume your home medications. Take all the medications as prescribed. Take a stool softener if taking narcotic pain medications. Stool softeners are only effective if you drink enough fluids. Drink 6-8 glass of water or fluids a day, unless this is not allowed for another health problem. Despite using stool softeners, if you haven't had a bowel movement in 3 days, please switch to a gentle laxative. Gentle laxatives are sold over the counter. You should have a bowel movement within 24 hours, if not call the office. You will be discharged from the hospital with a prescription for pain medication. You are encouraged to decrease the use of narcotic pain medication as tolerated. Should you require a refill, please call the office. [facility] prescribes narcotic pain medication for only 4-6 weeks after surgery. If you require pain medication beyond this time period, you may be referred to your Primary Care Physician or to the Pain Clinic for further evaluation. Plan ahead for refills on pain medication as many narcotics either need to be picked up at the office or mailed. It is best to call 48-72 hours in advance of needing a prescription refill so you don't run out of medication. To help control the post-operative pain, you may take NSAIDs (Aleve,Advil, Motrin, Ibuprofen, Naprosyn) or Tylenol as prescribed on the bottle in addition to the pain medication. ANTICOAGULATION (blood thinners): Continue your Aspirin, Lovenox or Coumadin as prescribed to help prevent a blood clot in the leg or in the lungs. As long as your incision remains dry and you tolerate the NSAIDs (Aleve, Advil, Motrin, ibuprofen, naprosyn), it is OK to use the NSAIDS while you are taking your anticoagulation medication. Should your incision start to drain, stop the NSAID and contact our office. Common symptoms of blood clot in the legs include: localized pain, swelling, calf tenderness, redness or discoloration of the skin. Blood clot in the lung symptoms include: shortness of breath, rapid pulse, sweating, and chest pain that worsens with deep breathing, coughing up blood, lightheadedness, feelings of anxiety. If you experience any of these symptoms notify your physician immediately, go to the emergency room, or if having trouble breathing, call 911. WOUND CARE: Leave the dressing on for 7 to 10days. You may change the dressing if it becomes saturated greater than 50%. Do not get the dressing wet at anytime. Wash your hands with antibacterial soap, rinse and dry prior to any wound care. If you have jorge luis the visiting nurse or rehab facility can remove the stapes 10-14 days after surgery and place steri-strips across the wound. Leave the steri-strips in place until they fall off on their won. You may let water from the shower run on top of the steri-strips. If you do not have a visiting nurse or rehab facility, you will need to return to the office at 10-14 days for the jorge luis to be removed. If you have itching or redness around the dressing call the office. FOLLOW-UP: Please follow up with your surgeon in the orthopedic clinic in 4 weeks from the day of surgery. If you have jorge luis that need to be removed, you will need to come back to the office in 10-14 days from the day of surgery. Referrals: Debbi Davis MD [Primary Care Provider] -
== END 2017-03-23 15:17 | DRG 469 ==
LOC: SAMDAY 08:14 → 3NENU 12:47
PROVIDERS: ADMIT Orthopaedic Surgery; ATTEND Orthopaedic Surgery

== ENCOUNTER 2017-10-29 10:03 | Inpatient (IN) ==
--- NOTE | 2017-10-28 21:08 | Discharge Summary ---
<CristoJuli E - Last Filed: 10/28/17 21:06> Date of Encounter: 10/28/17 - Discharge Diagnosis (1) Rotator cuff tear arthropathy of right shoulder Priority: Primary Status: Chronic (2) Cardiac defibrillator in place Priority: Secondary Status: Chronic (3) Decreased cardiac ejection fraction Priority: Secondary Status: Chronic (4) Dilated cardiomyopathy Priority: Secondary Status: Chronic (5) CKD (chronic kidney disease) Priority: Secondary Status: Chronic Qualifiers: Chronic kidney disease stage: unspecified stage Qualified Code(s): N18.9 - Chronic kidney disease, unspecified (6) History of basal cell carcinoma Priority: Secondary Status: Chronic (7) Pacemaker Priority: Secondary Status: Chronic (8) HTN (hypertension) Priority: Secondary Status: Chronic Qualifiers: Hypertension type: unspecified Qualified Code(s): I10 - Essential (primary ) hypertension (9) HLD (hyperlipidemia) Priority: Secondary Status: Chronic Qualifiers: Hyperlipidemia type: unspecified (10) CHF (congestive heart failure) Priority: Secondary Status: Chronic Qualifiers: Congestive heart failure type: unspecified Congestive heart failure chronicity: unspecified Qualified Code(s): I50.9 - Heart failure, unspecified - Discharge Medications Home Medications: Amiodarone HCl [Pacerone] 400 mg PO DAILY 03/19/17 [History] Furosemide [Lasix] 20 mg PO DAILY 03/19/17 [History] Sacubitril/Valsartan [Entresto 24 mg-26 mg Tablet] 1 tab PO BID 03/19/17 [ History] Digoxin [Lanoxin] 0.25 mg PO Q48H 05/10/17 [History] Metoprolol XL (24 HR) Succ [Toprol Xl] 25 mg PO DAILY 05/10/17 [History] Rivaroxaban [Xarelto] 20 mg PO DAILY 05/10/17 [History] OxyCODONE Immed Rel [Roxicodone 5 MG] 5 mg PO Q6HR PRN 7 Days #28 tablet [Rx] Allergies/Adverse Reactions: 3 Allergy/AdvReac Type Severity Reaction Status Date / Time aspirin AdvReac NAUSEA,VOMI Verified 10/29/17 10:58 TING Primary care physician: Debbi Davis, - Patient Status Disposition: Home, Self-Care Condition: Good - Discharge Instructions Follow Up With: Debbi Davis MD [Primary Care Provider] - - Hospital Course Hospital course: Mr. Min is a 77 year old male - Time Spent with Patient Total time spent providing and/or coordinating discharge services: <Sherman Boston - Last Filed: 10/30/17 07:03> Date of Encounter: 10/30/17 Time of Encounter: 07:03 - Discharge Diagnosis (1) Atrial fibrillation Priority: Secondary Status: Chronic Qualifiers: Atrial fibrillation type: paroxysmal Qualified Code(s): I48.0 - Paroxysmal atrial fibrillation (2) Pacemaker Priority: Secondary Status: Chronic (3) HTN (hypertension) Priority: Secondary Status: Chronic Qualifiers: Hypertension type: unspecified Qualified Code(s): I10 - Essential (primary ) hypertension (4) HLD (hyperlipidemia) Priority: Secondary Status: Chronic Qualifiers: Hyperlipidemia type: unspecified (5) CHF (congestive heart failure) Priority: Secondary Status: Chronic Qualifiers: Congestive heart failure type: diastolic Congestive heart failure chronicity: unspecified Qualified Code(s): I50.30 - Unspecified diastolic ( congestive) heart failure (6) Status post total right knee replacement Priority: Secondary Status: Chronic (7) Rotator cuff tear arthropathy of right shoulder Priority: Primary Status: Chronic (8) Cardiac defibrillator in place Priority: Secondary Status: Chronic (9) Dilated cardiomyopathy Priority: Secondary Status: Chronic (10) CKD (chronic kidney disease) Priority: Secondary Status: Chronic Qualifiers: Chronic kidney disease stage: stage 2 (mild) Qualified Code(s): N18.2 - Chronic kidney disease, stage 2 (mild) (11) History of basal cell carcinoma Priority: Secondary Status: Chronic Primary care physician: Debbi Davis, - Patient Status Functional capacity at discharge: uses cane/walker Overall status at discharge: patient is progressing back to baseline - Hospital Course Hospital course: Mr. Min is a 77 year old male Status post right total shoulder replacement The patient had an uneventful postoperative course. They received antibiotics and physical therapy and were discharged in stable condition. There will follow -up in the office in 2 weeks. - Time Spent with Patient Total time spent providing and/or coordinating discharge services:
--- NOTE | 2017-10-29 10:25 | History & Physical Report ---
Date of Encounter: 10/29/17 Time of Encounter: 10:24 24 Hour HP Update - Instructions Instructions: If the History and Physical is less than 30 days old and was completed prior to A.M. admission and or procedure and has NOT been updated on calendar day of procedure please complete this update prior to performing procedure. - Update Patient reports changes in Medical Condition: No Changes in examination, assessment, or condition: No Changes in Medication: No Preop tests/diagnostics Reviewed: Yes Surgery Remains Indicated: Yes Consent for Planned Operative Procedure(s) Verified: Yes - Pre-Operative Checklist Preoperative Checklist Indicated: No Prophylactic Antibiotic Ordered: Yes Is VTE Prophylaxis Indicated?: Yes
[2017-10-29] MEDS ORDERED: Lidocaine -MPF 1% 2 ML VIAL ID ONE (10:36)
[2017-10-29] MEDS ORDERED: CeFAZolin Syr 2,000MG/20 ML 2,000 MG/20 ML SYRINGE IVPB ONE (10:36)
[2017-10-29] MEDS ORDERED: Plasma-Lyte A (PH 7.4) 1,000 ML IVC SCH (10:45)
--- NOTE | 2017-10-29 11:36 | Anesthesia Evaluation PreOp ---
Date of Encounter: 10/29/17 Time of Encounter: 11:33 - Past History Planned Operation: right TSR Cardiac History: CHF, HTN, Arrhythmia (afib), Pacemaker/ICD (AICD), Other ( ischemic cardiomyopathy) Pulmonary History: Denies Any Significant HX INSURANCE COMMISSIONER History: Denies Any Significant HX Other Medical History: Denies Any Significant HX, Renal (CKD 1) Anesthesia History: No Prior Anesthetic Complications, Past Anesthesia (right TKA, right RCR, theodore) Alcohol Use: none Drug use: none Medications and Allergies Amiodarone HCl [Pacerone] 400 mg PO DAILY 03/19/17 [History] Furosemide [Lasix] 20 mg PO DAILY 03/19/17 [History] Sacubitril/Valsartan [Entresto 24 mg-26 mg Tablet] 1 tab PO BID 03/19/17 [ History] Digoxin [Lanoxin] 0.25 mg PO Q48H 05/10/17 [History] Metoprolol XL (24 HR) Succ [Toprol XL] 25 mg PO DAILY 05/10/17 [History] Rivaroxaban [Xarelto] 20 mg PO DAILY 05/10/17 [History] OxyCODONE Immed Rel [Roxicodone 5 MG] 5 mg PO Q6HR PRN 7 Days #28 tablet [Rx] 3 Allergy/AdvReac Type Severity Reaction Status Date / Time aspirin AdvReac NAUSEA,VOMI Verified 10/29/17 10:58 TING - Meds/Allergy Pre-op Review Medications Reviewed: Yes Allergies Reviewed: Yes Beta Blockers on Current Med List: Yes If Beta Blockers taken, Date/Time (Last Dose taken): 629 today Anesthesia Results - Labs Laboratory Tests 10/09/17 10/09/17 16:40 16:40 Hgb 12.3 L Hct 38.9 Plt Count 282 Sodium 137 Potassium 4.4 BUN 13 Creatinine 1.42 H Est GFR (Non-Af Amer) 48 L - Imaging Additional studies: TTE 2014: severe dilation LV, EF 10-15%, LA severely dilated, RA and R dilation , trace TR Anesthesia Exam Selected Entries 10/29/17 10:46 Temperature 98.0 F Pulse Rate 82 Respiratory Rate 18 Blood Pressure 111/72 O2 Sat by Pulse Oximetry 97 Weight: 87kg NPO (# of Hours): 8 - HEENT Pupil (Motor): EOMI Mallampati: II Teeth: Edentulous Oral Opening: Greater than 3 - INSURANCE COMMISSIONER LOC: Oriented INSURANCE COMMISSIONER Motor: Normal RUE, Normal LUE, Normal RLE, Normal LLE, Normal Face INSURANCE COMMISSIONER Sensory: Normal: RUE, LUE, RLE, LLE, Face - Cardiac Rhythm: Regular Murmur: None - Pulmonary Breath Sounds: bilateral Clear Respiratory Effort: Symmetrical Anesthesia Assess/Plan ASA Score: 4 Modified [place] Scale for Level of Consciousness: Cooperative, oriented, and tranquil Anesthetic Plan: General Monitoring Plan: Standard Monitors, A-Line Recovery Plan: PACU (agrees to GA, block and a-line)
[2017-10-29] MEDS ORDERED: *HR* Succinylcholine 200 MG/10 ML VIAL IVP ONE (12:02)
[2017-10-29] MEDS ORDERED: Lidocaine -MPF 2% 2 ML VIAL ONE (12:02)
[2017-10-29] MEDS ORDERED: Ondansetron 4 MG/2 ML VIAL ONE (12:02)
[2017-10-29] MEDS ORDERED: Dexamethasone 4 MG/ML VIAL ONE (12:03)
[2017-10-29] MEDS ORDERED: *HR* Etomidate 40 MG/20 ML VIAL IVP ONE (12:06)
[2017-10-29] MEDS ORDERED: *HR* OxyCODONE Immed Rel 5 MG TABLET PO PRN ×3 (12:09→15:42)
[2017-10-29] MEDS ORDERED: *HR* Promethazine 25 MG/ML VIAL IVP PRN (12:09)
[2017-10-29] MEDS ORDERED: Heparin 1,000 UNITS/500 mL 500 ML ONE (12:13)
[2017-10-29] MEDS ORDERED: Ketamine *HR* 500 MG/10 ML MDV ONE (12:14)
[2017-10-29] MEDS ORDERED: ROPIVACAINE HCL/PF 0.5% 30 ML VIAL ONE (12:53)
[2017-10-29] MEDS ORDERED: *HR* Vasopressin 20 UNIT/ML VIAL ONE (13:11)
--- NOTE | 2017-10-29 13:12 | Anesthesia Procedures ---
Date of Encounter: 10/29/17 Time of Encounter: 13:10 Procedures: Anesthesia - Nerve Block Procedure Date: 10/29/17 Time: 13:10 Pre-op Diagnosis: shoulder arthropathy Surgical Procedure: total shoulder Checklist: Correct Patient Identifier, Correct procedure, History checked Correct side: Right Blood Thinner: No Monitor Applied: EKG, BP, Pulse Oximetry Supplemental Oxygen via Nasal Cannula (L/min): 2 Sedation: Versed (mg): 2 Indication: Post Op Analgesia Pre-op Neuro Deficits: No Block Type: Supraclavicular, Other (superficial cervical plexus) Catheter placed: No Sterile Technique: Yes Ultrasound used: Yes Anatomy identified: Yes Visual spread of Local: Yes Blood on Needle Aspiration: No Smooth Injection of Local: Yes Pain with Injection of Local: No Prep: Chlorhexadine Needle: 22 x 50 mm Stimuplex Local: Ropivacaine (0.5%) Volume (cc): 25cc SC, 5cc SCP Number of Attempts: 1 Complications: None/effective block Vitals: Vital Signs/O2 Sat, Most Current Temp Pulse Resp BP Pulse Ox 98.0 F 71 18 101/61 100 10/29/17 10:46 10/29/17 12:48 10/29/17 12:48 10/29/17 12:48 10/29/17 12:48
[2017-10-29] MEDS ORDERED: *HR* Midazolam HCl 2 MG/2 ML VIAL ONE (13:18)
[2017-10-29] MEDS ORDERED: Acetaminophen IV 1,000 MG/100 ML INFUS..BTL ONE (14:38)
--- NOTE | 2017-10-29 14:38 | Orthopedic Operative Note ---
Date of procedure: 10/29/17 Pre-op diagnosis: Right shoulder cuff tear arthropathy Post-op diagnosis: same Procedure: Procedure: Total Shoulder Replacment Reverse, right with removal of hardware Estimated blood loss: 200 cc Hardware: Metal and polyethylene replacement: Arthrex large glenoid baseplate, 2 4.5 screws. 1 6.5 screw, 42+4 glenosphere, 9 humeral stem, poly insert 3 and 6 metal Exam Under anesthesia: Full motion and no instability Procedural Notes: Grade 4 arthritic changes humeral head and glenoid socket, tear rotator cuff, retained hardware humeral metaphysis Operative procedure: The patient was brought to the operating room and placed on the operating room table. After general anesthesia was administered the operative shoulder was examined. Findings were noted. The patient was placed in the modified beachchair position. All pressure points were padded appropriately. And the head was stabilized in the neutral position. The operative extremity was prepped and draped in the sterile surgical fashion. The patient received IV antibiotics prior to skin incision. A standard deltopectoral approach was made to the operative shoulder. Incision was made to the skin and subcutaneous tissue,hemo stasis was obtained with Bovie cautery. Using careful blunt dissection the cephalic vein was identified and mobilized medially. The deltopectoral interval was developed and the clavipectoral fascia was incised. The subscap was released off the lesser tuberosity and tagged with #2 FiberWire suture subscap was irreparable. The humerus was dislocated patient noted to have tear supraspinatus tendon, and the humeral cut was made along the anatomic neck. Humeral head had grade 4 changes. Anterior and posterior Bankart retractors were placed to expose the glenoid. Glenoid socket had grade 4 changes. The glenoid guide was seated and the centering hole was made. It was reamed with the appropriate reamer. The large baseplate was seated and secured with (2) 4.5 screws and one 6.5 screw. The baseplate was irrigated and dried and the 42+4 Glenosphere was seated and secured with the Akins taper. The Akins taper was tested and found to be secure the humerus was redislocated and prepared with the diaphyseal reamers, followed by a broaching process up to the appropriate size 9 in the patient's anatomic version. The metaphyseal reamer was then utilized. Trial reduction found the shoulder to be relocatable. Trial components were removed The appropriate 9 stem was impacted in place in the patient's anatomic version. Trial reduction found the shoulder to be relocatable and stable with the appropriate 6 metal and 3 Sherice Trial component was removed and the real implants were seated and secured the shoulder was reduced. The shoulder had excellent motion and excellent stability and no evidence of dislocation. The deep tissue was irrigated with pulse irrigation. The PA closed the shoulder. The deltopectoral interval was closed with a running #1 PDS suture, subcutaneous tissue was irrigated and closed with 0 PDS suture, the skin was closed with Dermabond. The patient was placed in a sterile dressing, abduction brace and extubated. The patient was then transferred to the recovery room in stable condition. Anesthesia: MAC, regional Surgeon: Sherman Boston Was there an visitor services assistant present: No Estimated blood loss (cc): 200 Condition: stable Disposition: PACU
[2017-10-29] MEDS ORDERED: *HR* EPINEPHrine 1 MG/ML AMPUL ONE (15:02)
--- NOTE | 2017-10-29 15:10 | Anesthesia Evaluation Post Op ---
Date of Encounter: 10/29/17 Time of Encounter: 15:09 - Vital Signs Vital Signs: Vital Signs/O2 Sat, Most Current Temp Pulse Resp BP Pulse Ox 98.0 F 70 18 98/66 100 10/29/17 10:46 10/29/17 13:15 10/29/17 13:15 10/29/17 13:15 10/29/17 13:15 - Lungs Lungs: Clear Ascult./Percussion - Airway Airway: Non-obstructed - Cardiovascular Regular Rate - Mental Status Mental Status: Alert & Oriented, Answers Appropriately - Pain Pain Scale: 0 - Nausea Vomiting Nausea Vomiting: Not Present - Hydration Hydration: NPO, Has not voided - Discharge PostOp Status: Transfer Patient to floor
[2017-10-29 15:13] LABS: Hematocrit 38.5 % (37.5-50.1); Hemoglobin 12.5 g/dL (12.9-16.9)
[2017-10-29] MEDS ORDERED: MOM Conc 10 ML UD.LIQ PO PRN (15:42)
[2017-10-29] MEDS ORDERED: Ondansetron 4 MG/2 ML VIAL IVP PRN (15:42)
[2017-10-29] MEDS ORDERED: Sennosides 8.6 MG TABLET PO PRN (15:42)
[2017-10-29] MEDS ORDERED: *HR* Digoxin 0.25 MG TABLET PO SCH (15:42)
[2017-10-29] MEDS ORDERED: Temazepam 15 MG CAPSULE PO PRN (15:42)
[2017-10-29] MEDS ORDERED: Naloxone 0.4 MG/ML INJ IVP PRN (15:42)
[2017-10-29] MEDS: CeFAZolin Premix DUPLEX 2,000 MG/50 ML BAG IVPB SCH (17:03)
[2017-10-29] MEDS: Ringers Solution, Lactated 1,000 ML IVC SCH (17:03)
[2017-10-29] MEDS: SACUBITRIL/VALSARTAN 24/26 MG TABLET PO SCH (22:46)
[2017-10-30] MEDS: CeFAZolin Premix DUPLEX 2,000 MG/50 ML BAG IVPB SCH (00:54)
[2017-10-30] MEDS: Ringers Solution, Lactated 1,000 ML IVC SCH (00:54)
[2017-10-30 06:53] LABS: Hematocrit 37.9 % (37.5-50.1); Hemoglobin 12.4 g/dL (12.9-16.9)
--- NOTE | 2017-10-30 07:04 | Orthopedics Progress Note ---
Date of Encounter: 10/30/17 Time of Encounter: 07:04 - Assessment and Plan (1) Atrial fibrillation Current Visit: No Status: Chronic Qualifiers: Atrial fibrillation type: paroxysmal Qualified Code(s): I48.0 - Paroxysmal atrial fibrillation (2) Pacemaker Current Visit: No Status: Chronic (3) HTN (hypertension) Current Visit: No Status: Chronic Qualifiers: Hypertension type: unspecified Qualified Code(s): I10 - Essential (primary ) hypertension (4) HLD (hyperlipidemia) Current Visit: No Status: Chronic Qualifiers: Hyperlipidemia type: unspecified Qualified Code(s): E78.5 - Hyperlipidemia , unspecified (5) CHF (congestive heart failure) Current Visit: No Status: Chronic Qualifiers: Congestive heart failure type: diastolic Congestive heart failure chronicity: unspecified Qualified Code(s): I50.30 - Unspecified diastolic ( congestive) heart failure (6) Status post total right knee replacement Current Visit: No Status: Chronic (7) Rotator cuff tear arthropathy of right shoulder Current Visit: No Status: Chronic (8) Cardiac defibrillator in place Current Visit: No Status: Chronic (9) Dilated cardiomyopathy Current Visit: No Status: Chronic (10) CKD (chronic kidney disease) Current Visit: No Status: Chronic Qualifiers: Chronic kidney disease stage: stage 2 (mild) Qualified Code(s): N18.2 - Chronic kidney disease, stage 2 (mild) (11) History of basal cell carcinoma Current Visit: No Status: Chronic Subjective Interval history: Patient was seen this morning doing well without complaints. Afebrile vital signs stable. Operative extremity: Neurovascularly intact Dressing clean dry and intact Calves nontender Assessment and plan: Continue with postoperative care Discharged Objective Vital signs: Vital Signs Temp Pulse Resp BP Pulse Ox 10/30/17 03:58 97.5 F L 63 15 99/51 97 10/30/17 00:00 97.3 F L 70 15 98/55 98 10/29/17 20:58 97.4 F L 71 16 94/58 97 10/29/17 16:26 97.4 F L 70 16 92/58 96 10/29/17 15:27 70 16 124/47 94 10/29/17 15:17 97.9 F 70 16 107/51 94 10/29/17 15:07 70 16 91/65 94 10/29/17 14:57 72 16 109/72 94 10/29/17 14:47 97.6 F 70 12 104/68 97 10/29/17 13:15 70 18 98/66 100 10/29/17 13:02 70 18 105/60 100 10/29/17 12:48 71 18 101/61 100 10/29/17 10:46 98.0 F 82 18 111/72 97 10/29/17 10:29 98.0 F 82 18 111/72 97 Intake and Output 10/29/17 10/29/17 10/30/17 15:59 23:59 07:59 Intake Total 170 / 170 1000 / 1000 Output Total 200 / 200 800 / 800 Balance -200 / -200 170 / 170 200 / 200 Intake: IV Fluids 50 / 50 1000 / 1000 Lactated Ringers 1,000 ML @ 75 1000 / 1000 mls/hr IVC .[id number] MORGAN Rx#: [id number] Ancef Premix DUPLEX 2,000 mg In 50 / 50 50 ml @ 100 mls/hr IVPB Q8HR MORGAN Rx#:[id number] Oral 120 / 120 Output: Urine 750 / 750 Emesis 50 / 50 Estimated Blood Loss 200 / 200 Other: Meal Dinner Percent of Meal Consumed 85% # Voids 1 Weight 86.636 kg - Labs CBC & BMP: 10/30/17 06:43 Labs: Abnormal lab results Hgb 12.4 g/dL (12.9-16.9) L 10/30/17 06:43 - VTE Documentation of Mechanical Device: Venous foot pump, device Consult Discharge Plan - Plan Referrals: Debbi Davis MD [Primary Care Provider] -
[2017-10-30 07:31] VITALS: BP 100/62
[2017-10-30] MEDS ORDERED: *HR* Rivaroxaban 10 MG TABLET PO SCH (09:00)
[2017-10-30] MEDS ORDERED: Metoprolol XL (24 HR) Succ 25 MG TAB.ER.24H PO SCH (09:00)
[2017-10-30] MEDS ORDERED: *HR* Amiodarone 200 MG TABLET PO SCH (09:00)
[2017-10-30] MEDS ORDERED: Furosemide 20 MG TABLET PO SCH (09:00)
[2017-10-30] MEDS: SACUBITRIL/VALSARTAN 24/26 MG TABLET PO SCH (09:21)
== END 2017-10-30 11:27 | disposition home or self-care (01) | DRG 483 ==
LOC: SAMDAY 10:03 → 3NENU 15:40
PROVIDERS: ADMIT Orthopaedic Surgery; ATTEND Orthopaedic Surgery